=== PATIENT | male | born 1945 | race Caucasian/White ===

== ENCOUNTER → 2017-01-02 | Outpatient (CLI) | payer MEDICARE ==
[~2017-01-02] MED LIST: KEFLEX500 MG PO
== END | disposition home or self-care (01) ==
LOC: CDC 12:57
DX: R94.31 Abnormal electrocardiogram [ECG] [EKG] (principal); S83.231A Complex tear of medial meniscus, current injury, right knee, initial encounter; S83.271A Complex tear of lateral meniscus, current injury, right knee, initial encounter; Z88.0 Allergy status to penicillin; Z88.8 Allergy status to other drugs, medicaments and biological substances
CPT/HCPCS: 93000

== ENCOUNTER 2017-12-19 10:22 | Emergency (ER) | payer OTHER, MEDICARE ==
[~2017-12-19] VITALS: Ht 182.9 cm; Wt 89.1 kg
[2017-12-19 11:19] LABS: HEMOGLOBIN 14.4 G/DL (12.5-16.6); MCH 31.9 PG (29.0-34.0); MCHC 35.1 G/DL (30.0-36.0); MCV 90.9 FL (86-99); PLATELET COUNT 169 K/uL (156-360); RBC DIS.WIDTH-CV 12.3 % (11.8-14.6); RBC DIS.WIDTH-SD 40.6 % (39-53); RED BLOOD COUNT 4.51 M/uL (4.00-5.50); WHITE BLOOD COUNT 6.1 K/uL (4.1-10.2)
[2017-12-19 11:28] LABS: CHLORIDE 107 mEq/L (99-109); SODIUM 141 mEq/L (136-147)
[2017-12-19 11:30] LABS: GLUCOSE 101 mg/dL (70-99)
[2017-12-19 11:33] LABS: SERUM ETHYL ALCOHOL < 10 mg/dL
[2017-12-19 11:34] LABS: CREATININE 0.8 mg/dL (0.6-1.3); GFR ESTIMATE (CALCULATED) > 59 mL/min/ (58.99-99999)
[2017-12-19 11:35] LABS: UREA NITROGEN (BUN) 15 mg/dL (9-23)
[2017-12-19 11:40] LABS: TROP-I INTERPRETATION NEGATIVE; TROPONIN-I < 0.01 ng/mL (0.0-0.30)
[2017-12-19] MEDS ORDERED: MECLIZINE HCL25 MG PO (13:01)
[2017-12-19 13:58] VITALS: BP 136/90
== END 2017-12-19 14:08 | disposition home or self-care (01) ==
LOC: EME 10:22
PROVIDERS: Emergency Medicine
DX: H81.399 Other peripheral vertigo, unspecified ear (principal); E78.5 Hyperlipidemia, unspecified; K21.9 Gastro-esophageal reflux disease without esophagitis; Z88.0 Allergy status to penicillin; Z87.891 Personal history of nicotine dependence
CPT/HCPCS: 71045; 80048; 84484; 85027; 93005; 99281; 99285; G0480; J7030